=== PATIENT | female | born 1955 | race Caucasian/White ===

== ENCOUNTER → 2024-07-30 | Outpatient (CLI) | payer OTHER, SELFPAY ==
[2024-07-30 11:26] LABS: Basophils # (Auto) 0.1 Thou/mm3 (0.0-0.2); Basophils % (Auto) 1 % (0-2.5); Eosinophils # (Auto) 0.1 Thou/mm3 (0.0-0.5); Eosinophils % (Auto) 1 % (0-10); Hematocrit 41.3 % (36.0-46.0); Hemoglobin 13.7 g/dL (12.0-16.0); Immature Granulocytes % (Auto) 0 % (0-0); Immature Granulocytes Auto 0.01 Thou/mm3 (0.00-0.00); Lymphocytes # (Auto) 1.6 Thou/mm3 (1.0-4.8); Lymphocytes % (Auto) 33 % (10-50); Mean Corpuscular HGB Conc 33.2 g/dl (31.0-37.0); Mean Corpuscular Hemoglobin 28.7 pg (25.0-35.0); Mean Corpuscular Volume 87 fL (80-100); Monocytes # (Auto) 0.4 Thou/mm3 (0.0-0.8); Monocytes % (Auto) 8 % (0-12); Neutrophils # (Auto) 2.7 Thou/mm3 (1.8-7.7); Neutrophils % (Auto) 57 % (37-80); Nucleated Red Blood Cell % 0 /100 WBC (0); Platelet Count 332 Thou/mm3 (140-440); RDW Standard Deviation 41.1 fL (36.4-46.3); Red Blood Count 4.77 Miln/mm3 (4.00-5.20); White Blood Count 4.8 Thou/mm3 (3.6-11.0)
[2024-07-30 12:00] LABS: Alanine Aminotransferase 22 U/L (10-49); Albumin, Serum 4.5 gm/dL (3.4-4.8); Alkaline Phosphatase 66 U/L (46-116); Anion Gap 7 (7-16); Aspartate Amino Transferase 16 U/L (0-34); BUN/Creatinine Ratio 18 Ratio (12-20); Bilirubin,Total 0.6 mg/dL (0.3-1.2); Blood Urea Nitrogen 11 mg/dL (9-23); Calcium 9.6 mg/dL (8.3-10.6); Calcium (Corrected) 9.6 mg/dL (8.5-10.1); Carbon Dioxide 29.8 mMol/L (20.0-31.0); Cardiac Risk Estimate 3.4 RATIO (3.7-5.6); Chloride 103 mMol/L (98-107); Cholesterol 259 mg/dL (132-200); Creatinine (Component) 0.6 mg/dL (0.6-1.3); Globulin 2.2 gm/dL (2.3-3.5); Glucose 95 mg/dL (74-106); HDL Cholesterol 76 mg/dL (40-60); LDL Cholesterol,Calculated 172 mg/dL (0-130); Osmolality,Calculated 278 (275-295); Sodium 140 mMol/L (136-145); Thyroid Stimulating Hormone 2.28 uIU/mL (0.55-4.78); Total Protein 6.7 gm/dL (5.7-8.2); Triglycerides 53 mg/dL (30-150); eGFR > 60 See Note
[2024-07-30 12:14] LABS: T4 (Thyroxine) 7.7 mcg/dL (4.5-10.9)
== END | disposition home or self-care (01) ==
PROVIDERS: PCP Family Medicine; Referring Provider Family Medicine; Visit Provider Family Medicine
DX: M54.50 Low back pain, unspecified (principal); R79.9 Abnormal finding of blood chemistry, unspecified
CPT/HCPCS: 36415; 80053; 80061; 84436; 84443; 85025

== ENCOUNTER → 2024-11-06 | Outpatient (CLI) | payer OTHER, SELFPAY ==
--- NOTE | 2024-11-06 10:24 | XR_ITS ---
EXAMINATION: Ankle, left 3 views . Technique: Ankle AP, oblique, lateral 3 views Date and time of exam: November 06, 2024 1036 hours INDICATIONS: Patient fell today with into the ankle, ankle pain. FINDINGS: No fracture or dislocation Mild osteoarthritis tibiotalar joint IMPRESSION: No acute fracture
--- NOTE | 2024-11-06 10:24 | XR_ITS ---
Examination: Foot, left, 3 views Technique: AP, oblique, lateral views foot, 3 views Date and time of exam: November 06, 2024 1036 hours INDICATIONS: Patient fell today with injury to the foot, foot pain. FINDINGS: Mild narrowing first metatarsophalangeal joint No acute fracture No dislocation IMPRESSION: No acute fracture
== END | disposition home or self-care (01) ==
LOC: CDIM 10:03
PROVIDERS: PCP Physician Assistant; Referring Provider Physician Assistant; Visit Provider Physician Assistant
DX: S93.402D Sprain of unspecified ligament of left ankle, subsequent encounter (principal); X58.XXXD Exposure to other specified factors, subsequent encounter
CPT/HCPCS: 73610; 73630

== ENCOUNTER → 2025-05-07 | Outpatient (CLI) | payer OTHER, SELFPAY ==
--- NOTE | 2025-05-07 16:41 | XR_ITS ---
EXAMINATION: Right ribs 3 views TECHNIQUE: AP RPO LPO right ribs 3 views Date and time: May 07, 2025, 1451 hours INDICATIONS: Patient fell 7 days ago with injury to the right chest, right rib pain. FINDINGS: Significant osteopenia Acute fracture without significant displacement right 10th and 11th ribs posterolaterally No pneumothorax or hemothorax IMPRESSION: Acute fractures right 10th and 11th ribs
--- NOTE | 2025-05-07 16:41 | XR_ITS ---
EXAMINATION: PA lateral chest 2 views TECHNIQUE: Upright PA lateral chest 2 views Date and time: May 10, 2025, 1644 hours INDICATIONS: Patient fell 7 days ago with injury to the right chest, right rib pain FINDINGS: Please see the right rib series report for description of rib fractures Normal heart size Severe lower thoracic levoscoliosis Calcified mediastinal lymph node No pneumothorax IMPRESSION: No pneumothorax pulmonary contusion or hemothorax Please see the right rib series report
== END | disposition home or self-care (01) ==
LOC: CDIM 16:33
PROVIDERS: PCP Family Medicine; Referring Provider Nurse Practitioner Family; Visit Provider Nurse Practitioner Family
DX: S22.41XA Multiple fractures of ribs, right side, initial encounter for closed fracture (principal); W19.XXXA Unspecified fall, initial encounter
CPT/HCPCS: 71046; 71101